=== PATIENT | female | born 1955 | race Caucasian/White ===

== ENCOUNTER 2019-01-13 08:13 | Emergency (ER) | payer OTHER ==
[~2019-01-13] VITALS: Ht 152.4 cm; Wt 62.1 kg
[2019-01-13 08:47] LABS: ABSOLUTE NEUTROPHILS 5.8 thou/uL (1.4-8.2); BASOPHILS 0.7 % (0.0-2.0); EOSINOPHILS 0.8 % (0.0-3.0); HEMATOCRIT 40.5 % (37.0-47.0); HEMOGLOBIN 13.8 gm/dL (12.0-15.0); LYMPHOCYTES 24.7 % (24.0-44.0); MCH 30.2 pg (26.0-34.0); MCV 88.8 fL (80.0-100.0); MONOCYTES 8.8 % (1.0-8.0); PLATELET COUNT 292 thou/uL (150-400); RBC 4.56 mil/uL (4.20-5.00)
[2019-01-13] MEDS ORDERED: CHILDREN'S ASPI81 M1 PO (08:50)
[2019-01-13] MEDS ORDERED: TOPROL XL25 MG PO (08:50)
[2019-01-13] MEDS ORDERED: SYMBICORT160 MCG/4. INH (08:50)
[2019-01-13] MEDS ORDERED: CRESTOR40 MG PO (08:50)
[2019-01-13] MEDS ORDERED: ACCUNEB SO1.25 MG/1 INH (08:51)
[2019-01-13 09:03] LABS: ANION GAP 9 mmol/L (7-16); BUN 13 mg/dL (7-18); CALCIUM 9.3 mg/dL (8.5-10.1); CHLORIDE 103 mmol/L (98-107); CO2 26 mmol/L (21-32); CREATININE 0.5 mg/dL (0.6-1.0); GLUCOSE 115 mg/dL (74-106); POTASSIUM 4.3 mmol/L (3.5-5.1); SODIUM 138 mmol/L (136-145)
[2019-01-13 09:10] LABS: ALBUMIN 3.7 g/dL (3.4-5.0); SGOT 17 U/L (15-37); SGPT 20 U/L (30-65); TOTAL BILIRUBIN 0.5 mg/dL (<0.1-1.0); TOTAL PROTEIN 6.6 g/dL (6.4-8.2); TROPONIN-I <0.06 ng/mL (<0.06)
[2019-01-13] MEDS ORDERED: NORFLEX100 MG PO (09:33)
[2019-01-13] MEDS ORDERED: NAPROXEN375 MG PO (09:33)
[2019-01-13] MEDS ORDERED: NITROSTAT0.4 M1 SUBLING (09:35)
[2019-01-13 09:50] VITALS: BP 120/67
--- NOTE | 2019-01-15 13:19 | EKG ---
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 : 1955 Requested By: Tomas Sexton Order Number: [id number] MD: Guerrero Nelson Measurements Intervals [place] Rate: 75 P: 55 TN: 148 QRS: 59 QRSD: 133 T: 8 QT: 404 QTc: 452 Interpretive Statements Sinus rhythm Probable left atrial enlargement Right bundle branch block Compared to ECG 07/06/1999 12:32:00 Right bundle-branch block now present Electronically Signed On 01-15-2019 13:19:08 CDT by Guerrero Nelson [email or web address] ��������������������������������������������� <ELECTRONICALLY SIGNED> ���������������������������������������� By: Guerrero Nelson MD, [facility] ��������������������������������������������� 01/15/19 1319 7 7 Guerrero Nelson MD, [facility] /EPI
== END 2019-01-13 09:51 | disposition home or self-care (01) ==
LOC: ER 08:13
PROVIDERS: Emergency Medicine
DX: M43.6 Torticollis (principal); I25.10 Atherosclerotic heart disease of native coronary artery without angina pectoris; J44.9 Chronic obstructive pulmonary disease, unspecified; Z95.1 Presence of aortocoronary bypass graft; Z88.1 Allergy status to other antibiotic agents; Z88.5 Allergy status to narcotic agent

== ENCOUNTER 2019-09-11 16:07 | Emergency (ER) | payer OTHER ==
[~2019-09-11] VITALS: Ht 154.9 cm; Wt 61.7 kg
[~2019-09-11 16:07] MED LIST: ACCUNEB SO1.25 MG/1 INH; CHILDREN'S ASPI81 M1 PO; CRESTOR40 MG PO; NAPROXEN375 MG PO; NITROSTAT0.4 M1 SUBLING; NORFLEX100 MG PO; SYMBICORT160 MCG/4. INH; TOPROL XL25 MG PO
[2019-09-11 16:28] LABS: ABSOLUTE NEUTROPHILS 5.8 thou/uL (1.4-8.2); BASOPHILS 1.3 % (0.0-2.0); EOSINOPHILS 0.7 % (0.0-3.0); HEMATOCRIT 41.4 % (37.0-47.0); HEMOGLOBIN 13.9 gm/dL (12.0-15.0); LYMPHOCYTES 31.9 % (24.0-44.0); MCH 30.3 pg (26.0-34.0); MCHC 33.5 g/dL (28.0-37.0); MCV 90.4 fL (80.0-100.0); MONOCYTES 7.7 % (1.0-8.0); PLATELET COUNT 289 thou/uL (150-400); POLYS 58.4 % (36.0-66.0); RBC 4.58 mil/uL (4.20-5.00); RDW 14.3 % (10.5-14.5)
[2019-09-11 16:35] LABS: ANION GAP 10 mmol/L (7-16); BUN 8 mg/dL (7-18); CALCIUM 9.6 mg/dL (8.5-10.1); CHLORIDE 101 mmol/L (98-107); CO2 26 mmol/L (21-32); CREATININE 0.4 mg/dL (0.6-1.0); GLUCOSE 87 mg/dL (74-106); POTASSIUM 3.9 mmol/L (3.5-5.1); SODIUM 137 mmol/L (136-145)
[2019-09-11 16:45] LABS: ALBUMIN 3.7 g/dL (3.4-5.0); SGOT 22 U/L (15-37); SGPT 24 U/L (30-65); TOTAL BILIRUBIN 0.4 mg/dL (<0.1-1.0); TROPONIN-I <0.06 ng/mL (<0.06)
[2019-09-11] MEDS ORDERED: NORCO 5-325 TA1 EAC1 PO (19:05)
[2019-09-11 19:17] VITALS: BP 122/74
--- NOTE | 2019-09-12 19:13 | EKG ---
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: [employer] : 1955 Requested By: Dayan England Order Number: [id number] MD: Guerrero Nelson Measurements Intervals [place] Rate: 70 P: 58 MD: 151 QRS: 50 QRSD: 133 T: 15 QT: 404 QTc: 436 Interpretive Statements Sinus rhythm Right bundle branch block Compared to ECG 01/13/2019 08:18:16 No significant changes Electronically Signed On 09-12-2019 19:13:08 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
== END 2019-09-11 19:11 | disposition home or self-care (01) ==
LOC: ER 16:07
PROVIDERS: Physician Assistant
DX: R07.89 Other chest pain (principal); E78.5 Hyperlipidemia, unspecified; J44.9 Chronic obstructive pulmonary disease, unspecified; F17.210 Nicotine dependence, cigarettes, uncomplicated; Z88.1 Allergy status to other antibiotic agents; Z88.6 Allergy status to analgesic agent; Z88.8 Allergy status to other drugs, medicaments and biological substances

== ENCOUNTER 2020-07-27 08:47 | Emergency (ER) | payer OTHER ==
[~2020-07-27] VITALS: Ht 157.5 cm; Wt 61.2 kg
[~2020-07-27 08:47] MED LIST changes: +NORCO 5-325 TA1 EAC1 PO
[2020-07-27 08:50] VITALS: BP 115/83
[2020-07-27] MEDS ORDERED: BACITRACIN-POL3.5 GM OPHTHALMIC (09:19)
[2020-07-27] MEDS ORDERED: DOXYCYCLINE 10100 MG PO (09:19)
== END 2020-07-27 09:29 | disposition home or self-care (01) ==
LOC: ER 08:47
DX: L03.012 Cellulitis of left finger (principal); J44.9 Chronic obstructive pulmonary disease, unspecified; E78.5 Hyperlipidemia, unspecified; F17.210 Nicotine dependence, cigarettes, uncomplicated; Z95.1 Presence of aortocoronary bypass graft; Z79.899 Other long term (current) drug therapy; Z88.1 Allergy status to other antibiotic agents; Z88.5 Allergy status to narcotic agent; Z88.8 Allergy status to other drugs, medicaments and biological substances

== ENCOUNTER 2021-06-09 11:37 | Emergency (ER) | payer OTHER ==
[~2021-06-09] VITALS: Ht 149.9 cm; Wt 63.5 kg
[~2021-06-09 11:37] MED LIST changes: +BACITRACIN-POL3.5 GM OPHTHALMIC; +DOXYCYCLINE 10100 MG PO
[2021-06-09] MEDS ORDERED: CLARITIN10 MG PO (12:08)
[2021-06-09] MEDS ORDERED: EZETIMIBE10 MG PO (12:08)
[2021-06-09] MEDS ORDERED: BACLOFEN 10MG T10 MG PO (12:09)
[2021-06-09 14:13] VITALS: BP 127/78
== END 2021-06-09 14:13 | disposition home or self-care (01) ==
LOC: ER 11:37
DX: S60.222A Contusion of left hand, initial encounter (principal); E78.5 Hyperlipidemia, unspecified; J44.9 Chronic obstructive pulmonary disease, unspecified; F17.210 Nicotine dependence, cigarettes, uncomplicated; Z95.1 Presence of aortocoronary bypass graft; Z79.899 Other long term (current) drug therapy; Z79.82 Long term (current) use of aspirin; Z79.51 Long term (current) use of inhaled steroids; Z79.891 Long term (current) use of opiate analgesic; Z88.5 Allergy status to narcotic agent; Z88.8 Allergy status to other drugs, medicaments and biological substances; W01.198A Fall on same level from slipping, tripping and stumbling with subsequent striking against other object, initial encounter; Y93.89 Activity, other specified; Y92.096 Garden or yard of other non-institutional residence as the place of occurrence of the external cause; Y99.8 Other external cause status